=== PATIENT | female | born 1950 | race Caucasian/White ===

== ENCOUNTER 2022-09-30 10:30 | Outpatient (RCR) | payer MEDICARE, SELFPAY | END 2022-10-05 13:40 | disposition home or self-care (01) | PROVIDERS: Visit Provider Physician Assistant | DX: M25.511 Pain in right shoulder (principal); Z96.611 Presence of right artificial shoulder joint; Z51.89 Encounter for other specified aftercare | CPT/HCPCS: 97110; 97140; 97161 ==